=== PATIENT | male | born 1970 | race Caucasian/White ===

== ENCOUNTER 2018-03-27 13:19 | Emergency (ER) | payer OTHER, MEDICAID, SELFPAY ==
[2018-03-27 13:20] VITALS: BP 143/87; PULSE 76; RESP 20; TEMP 37.6; O2SAT 97; BMI 29.0
--- NOTE | 2018-03-27 14:04 | ED.LOWEXIN ---
HPI - Extremity Injury (Lower) <Xochiltbiju Hurtmer, GREENHOUSE SPECIALIST-BC - Last Filed: 03/27/18 22:11> General Chief Complaint: Extremity Injury, Lower Stated Complaint: RIGHT LEG AND SHOULDER PAIN Time Seen by Provider: 03/27/18 14:04 Source: patient Mode of arrival: ambulatory Limitations: no limitations History of Present Illness HPI Narrative: Patient presents with chief complaint of right shoulder pain as well as right upper leg and hip pain. This is been going on for about a week after going for hike with heavy pack. Patient has taken Tylenol for pain. Is unable to take ibuprofen due to GI upset. He denies any swelling. He denies any numbness or tingling. He denies any shortness of breath, chest pain, nausea, vomiting, diarrhea or fever. Patient states he has a history of shoulder pain going on for a long time and that it is stiff in the morning when he wakes up. He denies any specific trauma. He states that his leg worsens with some activities. He states it hurts more when he turns out and lifts up. Improves with rest. Related Data Home Medications Medication Instructions Recorded Confirmed clobazam [Onfi] 10 mg PO BID #0 03/26/17 03/27/18 levothyroxine 0.088 mg PO QAM #0 03/26/17 03/27/18 darunavir ethanolate [Prezista] 1 tab PO DAILY 03/27/18 03/27/18 emtricitabine-tenofovir (TDF) 1 tab PO DAILY 03/27/18 03/27/18 [Truvada] lacosamide [Vimpat] 1 tab PO BID 03/27/18 03/27/18 lamotrigine 1 dose PO BID 03/27/18 03/27/18 lisinopril 20 mg PO BID 03/27/18 03/27/18 ritonavir 1 tab PO DAILY 03/27/18 03/27/18 Previous Rx's Medication Instructions Recorded methocarbamol 500 mg PO Q6H PRN #20 tab 03/27/18 Allergies Allergy/AdvReac Type Severity Reaction Status Date / Time rabeprazole [From ACIPHEX] Allergy Severe MADE MY Unverified 01/23/18 12:44 HEAD SWELLED UP Sulfa (Sulfonamide Allergy Severe MY WHOLE Unverified 01/23/18 12:44 Antibiotics) BODY HURT, [SULFA (SULFONAMIDE MY LEGS ANTIBIOTICS)] FELT TERRIBLE, TROUBLE MOVING metronidazole [From FLAGYL] Allergy Mild I FORGOT Unverified 01/23/18 12:44 IT WAS A LONG TIME AGO, BUT IT WAS NEUROLOGICAL Review of Systems <ANTONY Conway-BC - Last Filed: 03/27/18 22:11> Review of Systems GENERAL: Denies chills, fatigue, malaise, fever, sweats. HEENT: Denies sinus pain, ear pain, sore throat, difficulty swallowing, dizziness. RESPIRATORY: Denies dyspnea, cough, wheezing, hemoptysis, sputum. CARDIOVASCULAR: Denies chest pain, palpitations, orthopnea, edema, GASTROINTESTINAL: Denies nausea, vomiting, abdominal pain, diarrhea, constipation, melena. : Denies dysuria, frequency, incontinence, hematuria, urinary retention. MUSCULOSKELETAL: See HPI SKIN: Denies rash, skin lesions, or other NEUROLOGIC: Denies weakness, headache, numbness, change in speech, confusion, seizures, incoordination. PSYCHIATRIC: No concerning psychosocial issues. 12 point review of systems is negative except for those stated above Exam <EZEKIEL ConwayP- - Last Filed: 03/27/18 22:11> Narrative Exam Narrative: GENERAL: This is a well-nourished, well-developed patient, lying in bed HEAD: Atraumatic. Normocephalic. No temporal or scalp tenderness. EYES: Pupils equal round and reactive. Extraocular motions intact. No scleral icterus. No injection or drainage. ENT: Nose without bleeding, purulent drainage or septal hematoma. Throat without erythema, tonsillar hypertrophy or exudate. Uvula midline. Airway patent. NECK: Trachea midline. No JVD or lymphadenopathy. Supple, nontender, no meningeal signs. CARDIOVASCULAR: Regular rate and rhythm without murmurs, gallops, or rubs. RESPIRATORY: Clear to auscultation. Breath sounds equal bilaterally. No wheezes, rales, or rhonchi. GASTROINTESTINAL: Abdomen soft, non-tender, nondistended. No hepato-splenomegaly, or palpable masses. No guarding. EXTREMITIES: Right shoulder has full range of motion. Positive peripheral pulses right hand. Right hip is full range of motion. Positive pedal pulses right feet. Patient has pain in right thigh and pronation of leg. Legs are equal bilaterally. No noted swelling lower legs. No pain to palpation right thigh. BACK: Nontender without deformity or crepitance. No flank tenderness. NEURO: AOx3. SKIN: No rash or erythema. No erythema or ecchymosis noted on right shoulder or right hip. Initial Vital Signs Initial Vital Signs: Vital Signs Temperature 99.7 F H 03/27/18 13:20 Pulse Rate 76 03/27/18 13:20 Respiratory Rate 20 03/27/18 13:20 Blood Pressure 143/87 H 03/27/18 13:20 Pulse Oximetry 97 03/27/18 13:20 <Meg Holder DO - Last Filed: 03/29/18 07:49> Initial Vital Signs Initial Vital Signs: Vital Signs Temperature 99.7 F H 03/27/18 13:20 Pulse Rate 76 03/27/18 13:20 Respiratory Rate 20 03/27/18 13:20 Blood Pressure 143/87 H 03/27/18 13:20 Pulse Oximetry 97 03/27/18 13:20 Course <LARY ConwayBC - Last Filed: 03/27/18 22:11> Hospital Course: Patient presented complaining of right shoulder as well as right hip and leg pain. He requested x-rays, which were taken. X-ray showed no acute fracture concerning abnormality at this point time. Suggested Bettie willis for muscle spasm of the right thigh. No signs concerning for DVT as patient has bilateral pedal pulses with no swelling of the lower extremities. I believe that this is likely related to his hike with a heavy pack. I discussed rest, ice, compression, elevation as well as [id number] medications as needed. Discussed return precautions for chest pain, shortness of breath or swelling of unilateral extremity. Patient remained hemodynamically stable throughout his stay. I checked on him several times. I encourage follow-up primary care provider. Orders Ordered: ED Orders 03/27/18 14:12 XR femur RT 1V Stat XR pelvis 1-2V Stat XR shoulder RT min 2V Stat Vital Signs - 8 hr 03/27/18 15:27 Temperature 98.9 F Pulse Rate 80 Respiratory Rate 14 Blood Pressure [Left Arm] 138/72 H Pulse Oximetry 97 <Meg Holder DO - Last Filed: 03/29/18 07:49> Orders Ordered: ED Orders 03/27/18 14:12 XR femur RT 1V Stat XR pelvis 1-2V Stat XR shoulder RT min 2V Stat Vital Signs - 8 hr 03/27/18 15:27 Temperature 98.9 F Pulse Rate 80 Respiratory Rate 14 Blood Pressure [Left Arm] 138/72 H Pulse Oximetry 97 MDM - Extremity Injury (Lower) <DAT Conway - Last Filed: 03/27/18 22:11> Imaging Data right shoulder xray: Radiologist's impression: View Report History Print [address] [address] XRay Report Signed Patient: Deni Landry MR#: [id number] : 1970 Acct:[id number] Age/Sex: 48 / M Date of Service: 03/27/18 Loc: ED Accession Number: [id number] Procedure: XR shoulder RT min 2V Ordering Provider: Xcohilt Magana PROCEDURE: XR SHOULDER RT MIN 2V INDICATIONS: right shoulder pain TECHNIQUE: 3 views of the shoulder were acquired. COMPARISON: None. FINDINGS: Bones: No fractures or dislocations. No suspicious bony lesions. Visualized ribs appear intact. Moderate acromioclavicular degenerative narrowing. Soft tissues: No suspicious soft tissue calcifications. IMPRESSION: No visualized acute fracture or dislocation. However, if clinical concern and/or pain persist, short interval imaging followup in 7-10 days is recommended, as occult injury cannot be definitively excluded. Dictated by: Soledad Ugarte M.D. on 03/27/2018 at 14:43 Approved by: Soledad Ugarte M.D. on 03/27/2018 at 14:45 xr pelvis: Radiologist's impression: [address] [address] XRay Report Signed Patient: Deni Landry MR#: [id number] : 1970 Acct:[id number] Age/Sex: 48 / M Date of Service: 03/27/18 Loc: ED Accession Number: [id number] Procedure: XR pelvis 1-2V Ordering Provider: Xochilt Magana PROCEDURE: XR PELVIS 1-2V INDICATIONS: pain on ambulation TECHNIQUE: 1 view(s) of the pelvis acquired. COMPARISON: None. FINDINGS: Bones: No fractures or dislocations. No suspicious bony lesions. Soft tissues: Visualized bowel gas pattern is normal. No suspicious soft tissue calcifications. IMPRESSION: No visualized acute fracture or dislocation. However, if clinical concern and/or pain persist, short interval imaging followup in 7-10 days is recommended, as occult injury cannot be definitively excluded. Dictated by: Soledad Ugarte M.D. on 03/27/2018 at 14:45 Approved by: Soledad Ugarte M.D. on 03/27/2018 at 14:47 xray r femur: Radiologist's impression: View Report History [address] [address] XRay Report Signed Patient: Deni Landry MR#: [id number] : 1970 Acct:[id number] Age/Sex: 48 / M Date of Service: 03/27/18 Loc: ED Accession Number: [id number] Procedure: XR femur RT 1V Ordering Provider: Xochilt Magana PROCEDURE: XR FEMUR RT 1V INDICATIONS: right femur pain TECHNIQUE: 1 views of the femur were acquired. COMPARISON: None. FINDINGS: Bones: No fractures or dislocations. No suspicious bony lesions. Soft tissues: No suspicious soft tissue calcifications or masses. IMPRESSION: No visualized acute fracture or dislocation. However, if clinical concern and/or pain persist, short interval imaging followup in 7-10 days is recommended, as occult injury cannot be definitively excluded. Dictated by: Soledad Ugarte M.D. on 03/27/2018 at 14:47 Approved by: Soledad Ugarte M.D. on 03/27/2018 at 14:48 [facility] Narrative Medical decision making narrative: Patient presented with musculoskeletal pain after doing a hike with a pack. X-rays were taken per his request and shown to have no fracture or acute process. I discussed at length with him [id number] remedies, rest ice and elevation. Given that the pain in his leg worsens with movement at some angles, I gave him a trial of Robaxin to see if that would help his pain. Discussed discussed at length with patient return precautions to the emergency department suggested follow-up primary care provider. Discharge Plan Departure Patient Disposition: Home, Self-Care Clinical Impression: Acute pain of right shoulder, Leg pain, right Discharge Date/Time: 03/27/18 15:29 Interventions: ED Discharge Assessment Last Done: 03/27/18 15:28 Instructions: How To Perform RICE (Rest, Ice, Compress, Elevate), DI for Shoulder Pain, DI for Muscle Spasm Activity Restrictions/Additional Instructions: I have given you a small prescription for muscle relaxer for your leg pain. Try this at night at first as it may be sedating. I suggest rest, ice, compression, elevation. Continue to take Tylenol as needed. Follow up with primary care provider. Come back to the emergency department for any sent and swelling of the lower extremity, shortness of breath or chest pain. Prescriptions: New methocarbamol 500 mg tablet 500 mg PO Q6H PRN (Reason: muscle spasm) Qty: 20 RF: 0 No Action clobazam [Onfi] 10 MG tablet 10 mg PO BID Qty: 0 RF: 0 levothyroxine 88 MCG tablet 0.088 mg PO QAM Qty: 0 RF: 0 lisinopril 40 mg tablet 20 mg PO BID RF: 0 lacosamide [Vimpat] 200 mg tablet 1 tab PO BID RF: 0 darunavir ethanolate [Prezista] 800 mg tablet 1 tab PO DAILY RF: 0 emtricitabine-tenofovir (TDF) [Truvada] 200-300 mg tablet 1 tab PO DAILY RF: 0 ritonavir 100 mg tablet 1 tab PO DAILY RF: 0 lamotrigine 100 mg tablet 1 dose PO BID RF: 0 <Meg Holder DO - Last Filed: 03/29/18 07:49> Cosign ED Attending Jori Attestation: I was immediately available in the department for consultation. Documentation has been reviewed. I agree with assessment and plan.
--- NOTE | 2018-03-27 14:12 | DI.RAD.S_ITS ---
PROCEDURE: XR PELVIS 1-2V INDICATIONS: pain on ambulation TECHNIQUE: 1 view(s) of the pelvis acquired. COMPARISON: None. FINDINGS: Bones: No fractures or dislocations. No suspicious bony lesions. Soft tissues: Visualized bowel gas pattern is normal. No suspicious soft tissue calcifications. IMPRESSION: No visualized acute fracture or dislocation. However, if clinical concern and/or pain persist, short interval imaging followup in 7-10 days is recommended, as occult injury cannot be definitively excluded. Dictated by: Soledad Ugarte M.D. on 03/27/2018 at 14:45 Approved by: Soledad Ugarte M.D. on 03/27/2018 at 14:47
--- NOTE | 2018-03-27 14:12 | DI.RAD.S_ITS ---
PROCEDURE: XR SHOULDER RT MIN 2V INDICATIONS: right shoulder pain TECHNIQUE: 3 views of the shoulder were acquired. COMPARISON: None. FINDINGS: Bones: No fractures or dislocations. No suspicious bony lesions. Visualized ribs appear intact. Moderate acromioclavicular degenerative narrowing. Soft tissues: No suspicious soft tissue calcifications. IMPRESSION: No visualized acute fracture or dislocation. However, if clinical concern and/or pain persist, short interval imaging followup in 7-10 days is recommended, as occult injury cannot be definitively excluded. Dictated by: Soledad Ugarte M.D. on 03/27/2018 at 14:43 Approved by: Soledad Ugarte M.D. on 03/27/2018 at 14:45
--- NOTE | 2018-03-27 14:12 | DI.RAD.S_ITS ---
PROCEDURE: XR FEMUR RT 1V INDICATIONS: right femur pain TECHNIQUE: 1 views of the femur were acquired. COMPARISON: None. FINDINGS: Bones: No fractures or dislocations. No suspicious bony lesions. Soft tissues: No suspicious soft tissue calcifications or masses. IMPRESSION: No visualized acute fracture or dislocation. However, if clinical concern and/or pain persist, short interval imaging followup in 7-10 days is recommended, as occult injury cannot be definitively excluded. Dictated by: Soledad Ugarte M.D. on 03/27/2018 at 14:47 Approved by: Soledad Ugarte M.D. on 03/27/2018 at 14:48
--- NOTE | 2018-03-27 15:22 | ED_ITS ---
HPI - Extremity Injury (Lower) <Xochiltbiju Hurtmer, GROCERY CADDY-BC - Last Filed: 03/27/18 22:11> General Chief Complaint: Extremity Injury, Lower Stated Complaint: RIGHT LEG AND SHOULDER PAIN Time Seen by Provider: 03/27/18 14:04 Source: patient Mode of arrival: ambulatory Limitations: no limitations History of Present Illness HPI Narrative: Patient presents with chief complaint of right shoulder pain as well as right upper leg and hip pain. This is been going on for about a week after going for hike with heavy pack. Patient has taken Tylenol for pain. Is unable to take ibuprofen due to GI upset. He denies any swelling. He denies any numbness or tingling. He denies any shortness of breath, chest pain, nausea , vomiting, diarrhea or fever. Patient states he has a history of shoulder pain going on for a long time and that it is stiff in the morning when he wakes up. He denies any specific trauma. He states that his leg worsens with some activities. He states it hurts more when he turns out and lifts up. Improves with rest. Related Data Home Medications Medication Instructions Recorded Confirmed clobazam [Onfi] 10 mg PO BID #0 03/26/17 03/27/18 levothyroxine 0.088 mg PO QAM #0 03/26/17 03/27/18 darunavir ethanolate [Prezista] 1 tab PO DAILY 03/27/18 03/27/18 emtricitabine-tenofovir (TDF) 1 tab PO DAILY 03/27/18 03/27/18 [Truvada] lacosamide [Vimpat] 1 tab PO BID 03/27/18 03/27/18 lamotrigine 1 dose PO BID 03/27/18 03/27/18 lisinopril 20 mg PO BID 03/27/18 03/27/18 ritonavir 1 tab PO DAILY 03/27/18 03/27/18 Previous Rx's Medication Instructions Recorded methocarbamol 500 mg PO Q6H PRN #20 tab 03/27/18 Allergies Allergy/AdvReac Type Severity Reaction Status Date / Time rabeprazole [From ACIPHEX] Allergy Severe MADE MY Unverified 01/23/18 12:44 HEAD SWELLED UP Sulfa (Sulfonamide Allergy Severe MY WHOLE Unverified 01/23/18 12:44 Antibiotics) BODY HURT, [SULFA (SULFONAMIDE MY LEGS ANTIBIOTICS)] FELT TERRIBLE, TROUBLE MOVING metronidazole [From FLAGYL] Allergy Mild I FORGOT Unverified 01/23/18 12:44 IT WAS A LONG TIME AGO, BUT IT WAS NEUROLOGICAL Review of Systems <ANTONY Conway-BC - Last Filed: 03/27/18 22:11> Review of Systems GENERAL: Denies chills, fatigue, malaise, fever, sweats. HEENT: Denies sinus pain, ear pain, sore throat, difficulty swallowing, dizziness. RESPIRATORY: Denies dyspnea, cough, wheezing, hemoptysis, sputum. CARDIOVASCULAR: Denies chest pain, palpitations, orthopnea, edema, GASTROINTESTINAL: Denies nausea, vomiting, abdominal pain, diarrhea, constipation, melena. : Denies dysuria, frequency, incontinence, hematuria, urinary retention. MUSCULOSKELETAL: See HPI SKIN: Denies rash, skin lesions, or other NEUROLOGIC: Denies weakness, headache, numbness, change in speech, confusion, seizures, incoordination. PSYCHIATRIC: No concerning psychosocial issues. 12 point review of systems is negative except for those stated above Exam <EZEKIEL ConwayP- - Last Filed: 03/27/18 22:11> Narrative Exam Narrative: GENERAL: This is a well-nourished, well-developed patient, lying in bed HEAD: Atraumatic. Normocephalic. No temporal or scalp tenderness. EYES: Pupils equal round and reactive. Extraocular motions intact. No scleral icterus. No injection or drainage. ENT: Nose without bleeding, purulent drainage or septal hematoma. Throat without erythema, tonsillar hypertrophy or exudate. Uvula midline. Airway patent. NECK: Trachea midline. No JVD or lymphadenopathy. Supple, nontender, no meningeal signs. CARDIOVASCULAR: Regular rate and rhythm without murmurs, gallops, or rubs. RESPIRATORY: Clear to auscultation. Breath sounds equal bilaterally. No wheezes , rales, or rhonchi. GASTROINTESTINAL: Abdomen soft, non-tender, nondistended. No hepato-splenomegaly , or palpable masses. No guarding. EXTREMITIES: Right shoulder has full range of motion. Positive peripheral pulses right hand. Right hip is full range of motion. Positive pedal pulses right feet. Patient has pain in right thigh and pronation of leg. Legs are equal bilaterally. No noted swelling lower legs. No pain to palpation right thigh. BACK: Nontender without deformity or crepitance. No flank tenderness. NEURO: AOx3. SKIN: No rash or erythema. No erythema or ecchymosis noted on right shoulder or right hip. Initial Vital Signs Initial Vital Signs: Vital Signs Temperature 99.7 F H 03/27/18 13:20 Pulse Rate 76 03/27/18 13:20 Respiratory Rate 20 03/27/18 13:20 Blood Pressure 143/87 H 03/27/18 13:20 Pulse Oximetry 97 03/27/18 13:20 <Meg Holder DO - Last Filed: 03/29/18 07:49> Initial Vital Signs Initial Vital Signs: Vital Signs Temperature 99.7 F H 03/27/18 13:20 Pulse Rate 76 03/27/18 13:20 Respiratory Rate 20 03/27/18 13:20 Blood Pressure 143/87 H 03/27/18 13:20 Pulse Oximetry 97 03/27/18 13:20 Course <LARY ConwayBC - Last Filed: 03/27/18 22:11> Hospital Course: Patient presented complaining of right shoulder as well as right hip and leg pain. He requested x-rays, which were taken. X-ray showed no acute fracture concerning abnormality at this point time. Suggested Bettie willis for muscle spasm of the right thigh. No signs concerning for DVT as patient has bilateral pedal pulses with no swelling of the lower extremities. I believe that this is likely related to his hike with a heavy pack. I discussed rest, ice, compression, elevation as well as [id number] medications as needed. Discussed return precautions for chest pain, shortness of breath or swelling of unilateral extremity. Patient remained hemodynamically stable throughout his stay. I checked on him several times. I encourage follow-up primary care provider. Orders Ordered: ED Orders 03/27/18 14:12 XR femur RT 1V Stat XR pelvis 1-2V Stat XR shoulder RT min 2V Stat Vital Signs - 8 hr 03/27/18 15:27 Temperature 98.9 F Pulse Rate 80 Respiratory Rate 14 Blood Pressure [Left Arm] 138/72 H Pulse Oximetry 97 <Meg Holder DO - Last Filed: 03/29/18 07:49> Orders Ordered: ED Orders 03/27/18 14:12 XR femur RT 1V Stat XR pelvis 1-2V Stat XR shoulder RT min 2V Stat Vital Signs - 8 hr 03/27/18 15:27 Temperature 98.9 F Pulse Rate 80 Respiratory Rate 14 Blood Pressure [Left Arm] 138/72 H Pulse Oximetry 97 MDM - Extremity Injury (Lower) <DAT Conway - Last Filed: 03/27/18 22:11> Imaging Data right shoulder xray: Radiologist's impression: View Report History Print [address] [address] XRay Report Signed Patient: Deni Landry MR#: [id number] : 1970 Acct:[id number] Age/Sex: 48 / M Date of Service: 03/27/18 Loc: ED Accession Number: [id number] Procedure: XR shoulder RT min 2V Ordering Provider: Xochilt Magana PROCEDURE: XR SHOULDER RT MIN 2V INDICATIONS: right shoulder pain TECHNIQUE: 3 views of the shoulder were acquired. COMPARISON: None. FINDINGS: Bones: No fractures or dislocations. No suspicious bony lesions. Visualized ribs appear intact. Moderate acromioclavicular degenerative narrowing. Soft tissues: No suspicious soft tissue calcifications. IMPRESSION: No visualized acute fracture or dislocation. However, if clinical concern and/or pain persist, short interval imaging followup in 7-10 days is recommended , as occult injury cannot be definitively excluded. Dictated by: Soledad Ugarte M.D. on 03/27/2018 at 14:43 Approved by: Soledad Ugarte M.D. on 03/27/2018 at 14:45 xr pelvis: Radiologist's impression: [address] [address] XRay Report Signed Patient: Deni Landry MR#: [id number] : 1970 Acct:[id number] Age/Sex: 48 / M Date of Service: 03/27/18 Loc: ED Accession Number: [id number] Procedure: XR pelvis 1-2V Ordering Provider: Xochilt Magana PROCEDURE: XR PELVIS 1-2V INDICATIONS: pain on ambulation TECHNIQUE: 1 view(s) of the pelvis acquired. COMPARISON: None. FINDINGS: Bones: No fractures or dislocations. No suspicious bony lesions. Soft tissues: Visualized bowel gas pattern is normal. No suspicious soft tissue calcifications. IMPRESSION: No visualized acute fracture or dislocation. However, if clinical concern and/or pain persist, short interval imaging followup in 7-10 days is recommended , as occult injury cannot be definitively excluded. Dictated by: Soledad Ugarte M.D. on 03/27/2018 at 14:45 Approved by: Soledad Ugarte M.D. on 03/27/2018 at 14:47 xray r femur: Radiologist's impression: View Report History [address] [address] XRay Report Signed Patient: Deni Landry MR#: [id number] : 1970 Acct:[id number] Age/Sex: 48 / M Date of Service: 03/27/18 Loc: ED Accession Number: [id number] Procedure: XR femur RT 1V Ordering Provider: Xochilt Magana PROCEDURE: XR FEMUR RT 1V INDICATIONS: right femur pain TECHNIQUE: 1 views of the femur were acquired. COMPARISON: None. FINDINGS: Bones: No fractures or dislocations. No suspicious bony lesions. Soft tissues: No suspicious soft tissue calcifications or masses. IMPRESSION: No visualized acute fracture or dislocation. However, if clinical concern and/or pain persist, short interval imaging followup in 7-10 days is recommended , as occult injury cannot be definitively excluded. Dictated by: Soledad Ugarte M.D. on 03/27/2018 at 14:47 Approved by: Soledad Ugarte M.D. on 03/27/2018 at 14:48 [facility] Narrative Medical decision making narrative: Patient presented with musculoskeletal pain after doing a hike with a pack. X-rays were taken per his request and shown to have no fracture or acute process. I discussed at length with him over-the- counter remedies, rest ice and elevation. Given that the pain in his leg worsens with movement at some angles, I gave him a trial of Robaxin to see if that would help his pain. Discussed discussed at length with patient return precautions to the emergency department suggested follow-up primary care provider. Discharge Plan Departure Patient Disposition: Home, Self-Care Clinical Impression: Acute pain of right shoulder, Leg pain, right Discharge Date/Time: 03/27/18 15:29 Interventions: ED Discharge Assessment Last Done: 03/27/18 15:28 Instructions: How To Perform RICE (Rest, Ice, Compress, Elevate), DI for Shoulder Pain, DI for Muscle Spasm Activity Restrictions/Additional Instructions: I have given you a small prescription for muscle relaxer for your leg pain. Try this at night at first as it may be sedating. I suggest rest, ice, compression, elevation. Continue to take Tylenol as needed. Follow up with primary care provider. Come back to the emergency department for any sent and swelling of the lower extremity, shortness of breath or chest pain. Prescriptions: New methocarbamol 500 mg tablet 500 mg PO Q6H PRN (Reason: muscle spasm) Qty: 20 RF: 0 No Action clobazam [Onfi] 10 MG tablet 10 mg PO BID Qty: 0 RF: 0 levothyroxine 88 MCG tablet 0.088 mg PO QAM Qty: 0 RF: 0 lisinopril 40 mg tablet 20 mg PO BID RF: 0 lacosamide [Vimpat] 200 mg tablet 1 tab PO BID RF: 0 darunavir ethanolate [Prezista] 800 mg tablet 1 tab PO DAILY RF: 0 emtricitabine-tenofovir (TDF) [Truvada] 200-300 mg tablet 1 tab PO DAILY RF: 0 ritonavir 100 mg tablet 1 tab PO DAILY RF: 0 lamotrigine 100 mg tablet 1 dose PO BID RF: 0 <Meg Holder DO - Last Filed: 03/29/18 07:49> Cosign ED Attending Jori Attestation: I was immediately available in the department for consultation. Documentation has been reviewed. I agree with assessment and plan.
[2018-03-27 15:27] VITALS: BP 138/72; PULSE 80; RESP 14; TEMP 37.2; O2SAT 97
== END 2018-03-27 15:29 | disposition home or self-care (01) ==
PROVIDERS: Emergency Provider Nurse Practitioner Family
DX: M79.604 Pain in right leg (principal); M25.511 Pain in right shoulder
CPT/HCPCS: 72170; 73030; 73551; 99282; 99284

== ENCOUNTER 2019-12-04 10:16 | Emergency (ER) | payer OTHER, MEDICAID, SELFPAY ==
[2019-12-04 10:30] VITALS: BP 149/94; PULSE 70; RESP 15; TEMP 37.2; O2SAT 99; BMI 30.7
--- NOTE | 2019-12-04 10:46 | ED_ITS ---
HPI - Extremity Injury (Lower) General Chief Complaint: Extremity Problem,Nontraumatic Stated Complaint: right hip pain Time Seen by Provider: 12/04/19 10:25 Source: patient Mode of arrival: Ambulatory Limitations: no limitations History of Present Illness HPI Narrative: 49-year-old male nonsmoker presents with a history of known avascular necrosis of the right hip. He had been in talks with Orthopedics out of town but given his cardiac history and stenting within the year they encouraged him to delay any possible interventions for his hip. He presents today because over the past few weeks and particularly past few days he has had increasing pain in the absence of any injury. His pain is much worse with any ambulation or weight-bearing and improves with rest. He denies numbness, tingling or weakness. He has had no fever or chills. MD complaint: hip injury Onset (ago): day(s) Severity: moderate Relieving factors: rest Exacerbating factors: weight bearing Other symptoms: none Related Data Home Medications Medication Instructions Recorded Confirmed clobazam [Onfi] 10 mg PO BID #0 03/26/17 12/04/19 levothyroxine 0.088 mg PO QAM #0 03/26/17 12/04/19 darunavir ethanolate [Prezista] 1 tab PO DAILY 03/27/18 03/27/18 emtricitabine-tenofovir (TDF) 1 tab PO DAILY 03/27/18 03/27/18 [Truvada] lamotrigine 1 dose PO BID 03/27/18 12/04/19 lisinopril 20 mg PO BID 03/27/18 12/04/19 ritonavir 1 tab PO DAILY 03/27/18 03/27/18 aspirin 81 mg PO DAILY 12/04/19 12/04/19 clobazam 10 mg PO BID 12/04/19 12/04/19 clopidogrel 75 mg PO DAILY 12/04/19 12/04/19 diclofenac sodium 4 g TOPICAL BID PRN 12/04/19 12/04/19 trenhqz-zhw-gadty-tenof alafen 1 tab PO DAILY 12/04/19 12/04/19 [Genvoya] lacosamide [Vimpat] 200 mg PO BID 12/04/19 12/04/19 lamotrigine 200 mg PO BEDTIME 12/04/19 12/04/19 metoprolol succinate 25 mg PO DAILY 12/04/19 morphine 15 mg PO Q8H PRN 12/04/19 12/04/19 pantoprazole 40 mg PO DAILY 12/04/19 12/04/19 rosuvastatin 10 mg PO DAILY 12/04/19 12/04/19 Previous Rx's Medication Instructions Recorded methocarbamol 500 mg PO Q6H PRN #20 tab 03/27/18 Allergies Allergy/AdvReac Type Severity Reaction Status Date / Time rabeprazole [From ACIPHEX] Allergy Severe MADE MY Verified 12/04/19 11:16 HEAD SWELLED UP Sulfa (Sulfonamide Allergy Severe MY WHOLE Verified 12/04/19 11:16 Antibiotics) BODY HURT, [SULFA (SULFONAMIDE MY LEGS ANTIBIOTICS)] FELT TERRIBLE, TROUBLE MOVING metronidazole [From FLAGYL] Allergy Mild I FORGOT Verified 12/04/19 11:16 IT WAS A LONG TIME AGO, BUT IT WAS NEUROLOGICAL Review of Systems Constitutional Constitutional: Denies chills, Denies fatigue, Denies fever(s), Denies frequent falls, Denies lethargy and Denies weakness Eyes Eyes: Denies change in vision, Denies eye discharge, Denies irritation and Denies loss of vision ENT Ears, Nose, Mouth, and Throat: Denies change in voice, Denies dizziness, Denies neck pain, Denies sore throat and Denies throat swelling Cardiovascular Cardiovascular: Denies chest pain, Denies irregular heart rhythm, Denies lightheadedness, Denies palpitations, Denies dyspnea, Denies dyspnea on exertion and Denies orthopnea Respiratory Respiratory: Denies cough, Denies dyspnea, Denies dyspnea on exertion and Denies wheezing Gastrointestinal Gastrointestinal: Denies abdominal pain, Denies change in bowel habits, Denies diarrhea, Denies nausea and Denies vomiting Genitourinary Genitourinary: Denies hematuria, Denies flank pain, Denies urinary incontinence and Denies urinary urgency Musculoskeletal Musculoskeletal: Denies back pain, Reports limited range of motion, Denies muscle weakness, Denies neck pain, Denies numbness and Denies tingling Integumentary/Breasts Skin/Breast: Denies pruritus, Denies erythema, Denies rash and Denies wounds Neurologic Neurologic: Denies behavioral changes, Denies confusion, Denies dizziness, Denies frequent falls, Denies loss of vision, Denies numbness, Denies tingling and Denies weakness Psychiatric Psychiatric: Denies anxiety, Denies behavioral changes, Denies confusion, Denies depression, Denies homicidal ideation and Denies suicidal ideation Endocrine Endocrine: Denies fatigue, Denies flushing and Denies palpitations Hematologic/Lymphatic Hematologic/Lymphatic: Denies easy bruising Allergic/Immunologic Allergic/Immunologic: Denies urticaria, Denies throat swelling and Denies wheezing Patient History Social History Smoking Status: Former smoker Smoking Status: Former smoker alcohol intake frequency: 0-2 drinks per day Substance Use Type: does not use Exam Narrative Exam Narrative: GENERAL: [49] year old patient appears stated age. Well- nourished, well-developed patient, in mild distress. HEAD: Atraumatic. Normocephalic. EYES: Pupils equal round and reactive. Extraocular motions intact. No scleral icterus. No injection or drainage. ENT: Nose without bleeding, purulent drainage. Throat without erythema, tonsillar hypertrophy or exudate. Airway patent. NECK: Trachea midline. Non tender CARDIOVASCULAR: Regular rate and rhythm without murmurs, gallops, or rubs. RESPIRATORY: Clear to auscultation. Breath sounds equal bilaterally. No wheezes, rales, or rhonchi. GASTROINTESTINAL: Abdomen soft, non-tender, nondistended. EXTREMITIES: Right hip pain with palpation as well as passive and active range of motion, active causes noted increased pain when compared to passive. No obvious deformity, shortening or rotation. Closed, isolated neurovascularly intact BACK: Nontender without deformity or crepitance. No flank tenderness. NEURO: AOx3. SKIN: No rash or erythema of visible areas Initial Vital Signs Initial Vital Signs: Vital Signs Temperature 99.0 F 12/04/19 10:30 Pulse Rate 70 12/04/19 10:30 Respiratory Rate 15 12/04/19 10:30 Blood Pressure 149/94 H 12/04/19 10:30 Pulse Oximetry 99 12/04/19 10:30 Course Orders Ordered: ED Orders 12/04/19 11:33 XR hip w pel if done RT 2V Stat Vital Signs Vital signs: Vital Signs - 8 hr 12/04/19 13:12 Pulse Rate 54 L Blood Pressure 113/69 Pulse Oximetry 97 MDM - Extremity Injury (Lower) MDM Narrative Medical decision making narrative: Discussion with on-call orthopedist regarding this patient with gradually worsening, known avascular necrosis. There are no labs or emergency department appropriate imaging that is likely to help. He recommends pain control outpatient referral. Patient given return precautions and has had questions answered to his apparent satisfaction. Discharge Plan Departure Patient Disposition: Home Clinical Impression: Avascular necrosis of bone of right hip Discharge Date/Time: 12/04/19 13:13 Instructions: DI for Hip Pain Activity Restrictions/Additional Instructions: *You have been diagnosed with [chronic hip pain from avascular necrosis] *What to do: * continue to take medications as directed *Follow up with Dr. Anders of [facility], call today for an appointment and let them know you were seen by us and Dr. Richard spoke with Dr. Anders *Return to ER if you should have any new, worsening or concerning symptoms Prescriptions: No Action clobazam [Onfi] 10 MG tablet 10 mg PO BID Qty: 0 RF: 0 levothyroxine 88 MCG tablet 0.088 mg PO QAM Qty: 0 RF: 0 clopidogrel 75 mg tablet 75 mg PO DAILY RF: 0 aspirin 81 mg tablet,delayed release (DR/EC) 81 mg PO DAILY RF: 0 pantoprazole 40 mg tablet,delayed release (DR/EC) 40 mg PO DAILY RF: 0 metoprolol succinate 25 mg tablet extended release 24 hr 25 mg PO DAILY RF: 0 morphine 15 mg tablet 15 mg PO Q8H PRN (Reason: pain) RF: 0 lamotrigine 100 mg tablet 200 mg PO BEDTIME RF: 0 rosuvastatin 10 mg tablet 10 mg PO DAILY RF: 0 diclofenac sodium 1 % gel 4 g TOPICAL BID PRN (Reason: pain) RF: 0 Vimpat 200 mg tablet 200 mg PO BID RF: 0 clobazam 10 mg tablet 10 mg PO BID RF: 0 Genvoya [id number] mg tablet 1 tab PO DAILY RF: 0 lisinopril 40 mg tablet 20 mg PO BID RF: 0 darunavir ethanolate [Prezista] 800 mg tablet 1 tab PO DAILY RF: 0 emtricitabine-tenofovir (TDF) [Truvada] 200-300 mg tablet 1 tab PO DAILY RF: 0 ritonavir 100 mg tablet 1 tab PO DAILY RF: 0 lamotrigine 100 mg tablet 1 dose PO BID RF: 0 methocarbamol 500 mg tablet 500 mg PO Q6H PRN (Reason: muscle spasm) Qty: 20 RF: 0 Referrals: Kirill Anders MD [Physician] -
--- NOTE | 2019-12-04 11:33 | DI.RAD.S_ITS ---
PROCEDURE: XR HIP W PEL IF DONE RT 2V INDICATIONS: worsening pain, known AVN R hip TECHNIQUE: AP pelvis with lateral view(s) of the right hip(s). COMPARISON: [facility], CR, XR FEMUR RT 1V, 03/27/2018, 14:00. FINDINGS: Bones: No dislocations. Pelvic ring appears intact. No suspicious bony lesions. There is a characteristic morphology and sclerosis of avascular necrosis, in this patient with clinically reported known AVN. Soft tissues: The visualized bowel gas pattern is normal. No suspicious soft tissue calcifications. IMPRESSION: The avascular necrosis pattern of the right hip is moderately severe. Comparison recent plain films are not available to establish where there the irregular articular margination is a new finding. The comparison studies from 03/27/18 did not have AVN morphology at that time. Dictated by: Dennis Hensley M.D. on 12/04/2019 at 12:01 Approved by: Dennis Hensley M.D. on 12/04/2019 at 12:03
[2019-12-04 13:12] VITALS: BP 113/69; PULSE 54; O2SAT 97
== END 2019-12-04 13:13 | disposition home or self-care (01) ==
PROVIDERS: Emergency Provider Emergency Medicine
DX: M87.051 Idiopathic aseptic necrosis of right femur (principal)
CPT/HCPCS: 73502; 99283